=== PATIENT | female | born 1995 | race Caucasian/White ===

== ENCOUNTER 2024-03-25 21:10 | Emergency (ER) | payer BC ==
[2024-03-25 21:31] VITALS: TEMP 98.4; O2SAT 98
--- NOTE | 2024-03-25 21:50 | ERPHSYRPT ---
- History of Present Illness Time Seen by Provider: 03/25/24 21:35 Source: patient Exam Limitations: no limitations Patient Subjective Stated Complaint: pt states she slipped in the kitchen. pt states that her knee went sideways Triage Nursing Assessment: pt came into the er via wheelchair; pt transferred to cot with assist of one; pt is axo x4; c/o rt knee pain; pt states 6/10 pain to rt knee; tenderness present to rt knee; no bruising, swelling, or deformity present to rt knee; skin PDW; no respiratory distress present; vitals wnl Physician History: The patient presented with acute right knee pain following a slip in the kitchen. The incident occurred around 8 o'clock, during which the knee was twisted sideways. The patient did not recall hitting the knee on anything during the fall. The pain was localized to the lower part and the side of the knee. The patient reported an inability to lift the knee off the table or bend it significantly, suggesting a limited range of motion. The patient also described a sensation of the knee feeling like it was going to pop. Despite the discomfort, the patient had not taken any medications prior to the consultation but had applied ice to the knee. Method of Injury: fell Occurred: just prior to arrival Quality: sharpness, stabbing, throbbing Severity of Pain-Max: severe Severity of Pain-Current: severe Lower Extremities Pain: knee: right Modifying Factors: Improves With: cold therapy, immobilization. Worsens With: movement Associated Symptoms: popping sensation Allergies/Adverse Reactions: No Known Drug Allergies Allergy (Unverified 03/25/24 21:20) Home Medications: Ferrous Sulfate 325 mg PO BID 03/25/24 [History] Hx Tetanus, Diphtheria Vaccination/Date Given: Yes Hx Influenza Vaccination/Date Given: Yes (2022) Hx Pneumococcal Vaccination/Date Given: No Immunizations Up to Date: No Travel Risk - International Travel Have you traveled outside of the country in past 3 weeks: No - Emerging Infectious Disease Are you exhibiting symptoms associated with any current EIDs: No - Review of Systems All Other Systems: Reviewed and Negative - Past Medical History Pertinent Past Medical History: Yes Other Medical History: anemia - Past Surgical History Past Surgical History: No - Female History Hx Now: No - Social History Smoking Status: Never smoker Exposure to second hand smoke: No Drug Use: none - Social Determinants of Health Will the patient participate in the screening: Yes Do you worry about a steady place to live?: No Do you have any problems with any of the following?: No known problems In the past 12 months,have you had to go without utilities?: No Transportation Issues: No Has anyone in your support network made you feel unsafe?: No Have you or anyone in your house had to go without enough: No - Nursing Vital Signs Nursing Vital Signs: Initial Vital Signs Temperature 98.4 F 03/25/24 21:21 Pulse Rate 96 H 03/25/24 21:21 Respiratory Rate 24 03/25/24 21:21 Blood Pressure 120/58 03/25/24 21:21 O2 Sat by Pulse Oximetry 98 03/25/24 21:21 Pain Scale Pain Intensity 4 - Physical Exam General Appearance: no apparent distress Knees Exam: right knee: normal inspection, pain, soft tissue tenderness, other (MCL TTP, medial joint line TTP, difficult exam due to guarding) Neuro/Tendon Exam: normal sensation Mental Status Exam: alert, oriented x 3, cooperative Skin Exam: normal color, warm, dry SpO2 Interpretation: normal SpO2: 98 O2 Delivery: Room Air - Course Nursing assessment & vital signs reviewed: Yes - Radiology Exams Right Knee X-ray Interpretation: Interpreted by me, No Fracture Ordered Tests: Active Orders 24 hr Category Date Time Status KNEE (MIN 4 VIEW) Stat Exams 03/25/24 21:26 Taken Medication Summary Discontinued Medications Generic Name Dose Route Start Last Admin Trade Name Freq PRN Reason Stop Dose Admin Ketorolac Tromethamine 60 mg 03/25/24 21:50 03/25/24 21:57 Ketorolac Tromethamine 30 Mg/Ml Inj IM 03/25/24 21:51 60 mg STAT ONE Administration Ketorolac Tromethamine Confirm 03/25/24 21:53 Ketorolac Tromethamine 30 Mg/Ml Inj Administered 03/25/24 21:54 Dose 60 mg .ROUTE .STK-MED ONE - Progress Progress: improved Progress Note: Knee exam limited due to guarding. X-ray negative for acute fracture or dislocation. Based on history and limited physical exam patient likely has MCL sprain possible medial meniscus injury. Will give the patient crutches for weightbearing as tolerated and put a compression knee sleeve on to help with swelling. Will send ketorolac as needed for pain and recommended use of Tylenol up to 3000 mg daily as needed. Ice and elevate knee to help decrease swelling and improve pain control. Recommend follow-up with orthopedics to determine if MRI is warranted. 03/25/24 22:19 \ Counseled pt/family regarding: lab results, diagnosis, need for follow-up, rad results Medical Desision Making - Diagnostic Testing Diagnostic test were ordered, analyzed, and reviewed by me: Yes Radiological Interpretation: Interpreted by me - Risk of complications The pt has a mod risk of morbidity or mortality based on: Need for prescription drug management - Departure Departure Disposition: Home Clinical Impression: Right knee pain, MCL sprain of right knee, Medial joint line tenderness of right knee, Limitation of joint motion of right knee Condition: Good Critical Care Time: No Referrals: DOCTOR,NO FAMILY [NON-STAFF PHY W/O PRIVILEGES] - [facility] [id number] Instructions: Knee Sprain (DC) Prescriptions: Diclofenac Sodium 75 mg PO BID PRN 7 Days #14 PRN Reason: Pain Ketorolac Trometh 10 mg Tab [TORAdol 10 MG TABLET] 10 mg PO TID PRN 5 Days #15 tablet PRN Reason: Pain Outpatient Orders: Ortho Referral Time Frame: 1 Day, Facility: [facility], Location: [facility]O [facility]
[2024-03-25] MEDS ORDERED: TORAdol 30 mg Injection ONE (21:53)
[2024-03-25] MEDS: TORAdol 30 mg Injection IM ONE (21:57)
[2024-03-25 22:22] VITALS: RESP 18
[2024-03-25 22:57] VITALS: BP 120/71; PULSE 87
--- NOTE | 2024-03-26 08:45 | XRAY ---
Indication: Pain following fall. Comparison: None 4 view right knee demonstrates mild lateral patella tilting and small nonspecific effusion. No other bony, articular, or soft tissue abnormalities.
== END 2024-03-25 22:45 | disposition home or self-care (01) ==
LOC: ED 21:10
DX: S83.411A Sprain of medial collateral ligament of right knee, initial encounter (principal); W18.40XA Slipping, tripping and stumbling without falling, unspecified, initial encounter; Y92.000 Kitchen of unspecified non-institutional (private) residence as the place of occurrence of the external cause; M25.561 Pain in right knee; Z79.899 Other long term (current) drug therapy
CPT/HCPCS: 73564; 96372; 99283; J1885